=== PATIENT | male | born 1960 | race Caucasian/White ===

== ENCOUNTER 2024-09-04 11:07 | Emergency (ER) | payer BC, SELFPAY ==
--- OUTSIDE RECORDS SUMMARY | 2024-09-02 07:53 | XMS_ITS | Continuity of Care Document ---
Author Organization [facility] Address [address] [place] [address] Phone Care Team Providers Care Manager Payment Name Role Phone Tong Serrano MD Primary Care Provider [phone] Jayashree Boland APRN Attending Provider Care Teams Patient Care Team Team Status: Active Member Role Status Dates Tong Serrano MD Primary Care Provider Active Patient Care Team Team Status: Inactive Member Role Status Dates Tong Serrano MD Primary Care Provider Active S tart: September 02, 2024 End: September 02, 2024 Jayashree Boland APRN Attending Provider Active Start: September 02, 2024 End: September 02, 2024 Chief Complaint and Reason for Visit Chief Complaint Admit Date Cough, congestion, loose stool, headache September 02, 2024 11:16am Allergies, Adverse Reactions, Alerts Allergen Type Severity Reaction Last Updated Verified Status No Known Allergies Allergy Unknown September 02, 2024 11:21 am Yes Active Social History Smoking Status Status Start Date End Date Date of Observa tion Ex-smoker (finding) July 11:16am Observation Status Observation Response Date of Response Legal Sex Male (finding) Sex Assigned At Male 1960 Family History Relationship Condition Age at Onset Recorded Date/T tashia father Unknown Hepatic cirrhosis Unknown mother Unknown Problems Active Problems Medical Problem Onset Date Status Sciatic pain Unknown Active Gastrointestinal complaints Unknown Acti ve Sciatic leg pain Unknown Active Acute lower respiratory infection Unknown Active Medications Medication Status Dose Units Route Directions Qty Days St art Date Stop Date End Date Instructions Adherence Azithromyci n 250 mg tablet Discont inued 0 PO .COMPLEX 6 Novemb er 2023 1:00am Janua ry 2024 2:39p m For 250 mg dose pack: take 500 mg today (day 1), then 250 mg for 4 days (days 2-5) PO Pseudoephed rine-Dm-Gua ifenesin (Capmist Dm) 60-15-400 mg tablet Discont inued 1 TAB PO EVERY 4-6 HOURS as needed for cold symptoms October 07, 2023 12:00a m Novem 2023 11:27 am do not exceed 4 doses per 24 hrs [place] (No Known Home Meds) Active September 02, 2024 12:00a m Vital Signs Vital Reading Result Reference Range Collection Date/Time Height 72 [in_i] September 02, 2024 11:25am Weight 79.83 kg September 02, 2024 11:25am Body Temperature 98.8 [degF] 97.6-99.0 September 02, 2024 11:25am Heart Rate 78 /min 60-100 September 02, 2024 11:25am Respiratory rate 16 /min 12-September 02, 2024 11:25am Oxygen saturation by Pulse oximetry 98 % 95-100 September 02, 2024 11:2 5am BP Systolic 117 mm[Hg] 100-140 September 02, 2024 11:25am BP Diastolic 78 mm[Hg] 60-100 September 02, 2024 11:25am BMI (Body Mass Index) 23.8 kg/m2 August 092024 11:25am Advance Directives Advance Directive Response Recorded Date/ Time Advance Directives No October 2:35pm Insurance Providers Guarantor Herminia Hoffman Address [address] [place] [address] Contact Info. Home Phone: Payer Policy Id Subscriber's Name Subscriber Id Effectiv e Date Expiration Date Bhakti MARCH/NAEUDY [id number] Herminia Hoffman [id number] Encounters Encounter Location(s) Arrival/Admit Date Discharge/Depart Date Provider(s) Departed Physician/Prov ider Office Visit -[facility] September 02, 2024 11:16am September 02, 2024 11:52am John Kirby [employer]VE[employer]MENT BROKER
[2024-09-04 11:14] VITALS: BP 127/91; PULSE 92; TEMP 37; O2SAT 98; BMI 23.7
--- OUTSIDE RECORDS SUMMARY | 2024-09-04 11:18 | XMS_ITS | Clinical Summary ---
Author Organization [facility] Address [address] [place] [address] Care Team Providers Care Fly Worker Name Role Phone Tong Serrano MD Primary Care Provider [phone] Encounters Date Type Department Care Team Description 09/04/2024 [facility] [address] [facility] [address] [place] [address] Tong Serrano MD from Last 3 Months Social History Tobacco Use Types Packs/Day Years Used Date Smoking Tobacco: Never Assessed Sex and Gender Information Value Date Recorded Sex Assigned at Not on file Legal Sex Male 7:17 PM EDT Gender Identity Not on file Sexual Orientation Not on file Last Filed Vital Signs Vital Sign Reading Time Taken Comments Blood Pressure 118/82 09/26/2021 12:00 PM EDT Pulse - - Temperature - - Respiratory Rate - - Oxygen Saturation - - Inhaled Oxygen Concentration - - Weight 87.3 kg (192 lb 6.4 oz) 09/26/2021 12:00 PM EDT Height 185.4 cm (6' 1 ) 09/26/2021 12:00 PM EDT Body Mass Index 25.38 09/26/2021 12:00 PM EDT Plan of Treatment Health Maintenance Due Date Last Done Comments CT Colonography 1960 Colonoscopy 1960 Colorectal Cancer Screening 1960 FIT-DNA 1960 FIT 1960 FOBT 1960 Sigmoidoscopy 1960 Influenza Vaccine (#1) 2024 Insurance BCBS Care Teams Fly Worker Relationship Specialty Start Date End Date Tong Serrano MD [address] [address] PCP - General Family Medicine 06/16/22
--- OUTSIDE RECORDS SUMMARY | 2024-09-04 11:18 | XMS_ITS | Encounter Summary ---
Author Organization [facility] Address [address] [place] [address] Care Team Providers Care Wastewater Project Manager Name Role Phone Tong Serrano MD Primary Care Provider [phone] Encounter Details Date Type Department Care Team (Late st Contact Info) Description 02/23/2024 Abstract [facility] [address] [facility] [address] [place] [address] Tong Serrano MD [address] [facility] [address] [place] [address] Social History Tobacco Use Types Packs/Day Years Used Date Smoking Tobacco: Never Assessed Sex and Gender Information Value Date Recorded Sex Assigned at Not on file Legal Sex Male 7:17 PM EDT Gender Identity Not on file Sexual Orientation Not on file documented as of this encounter Plan of Treatment Not on file documented as of this encounter Visit Diagnoses Not on filedocumented in this encounter Care Teams Wastewater Project Manager Relationship Specialty Start Date End Date Tong Serrano MD [address] [facility] [address] [place] [address] PCP - General Family Medicine 06/16/22 documented as of this encounter
--- OUTSIDE RECORDS SUMMARY | 2024-09-04 11:18 | XMS_ITS | Encounter Summary ---
Author Organization [facility] Address [address] [place] [address] Care Team Providers Care Supervisor Blast Furnace Name Role Phone Tong Serrano MD Primary Care Provider [phone] Encounter Details Date Type Department Care Team (Late st Contact Info) Description 07/24/2022 Abstract [facility] [address] [facility] [address] [place] [address] Tong Serrano MD [address] [facility] [address] [place] [address] Social History Tobacco Use Types Packs/Day Years [...] on filedocumented in this encounter Care Teams Supervisor Blast Furnace Relationship Specialty Start Date End Date Tong Serrano MD [address] [facility] [address] [place] [address] PCP - General Family Medicine 06/16/22 documented as of this encounter
--- OUTSIDE RECORDS SUMMARY | 2024-09-04 11:18 | XMS_ITS | Encounter Summary ---
Author Organization [facility] Address [address] [place] [address] Care Team Providers Care Funeral Assistant Name Role Phone Tong Serrano MD Primary Care Provider [phone] Encounter Details Date Type Department Care Team (Late st Contact Info) Description 09/04/2024 Abstract [facility] [address] [facility] [address] [place] [address] Tong Serrano MD [address] [facility] [address] [place] [address] Social History Tobacco Use Types Packs/Day Years [...] on filedocumented in this encounter Care Teams Funeral Assistant Relationship Specialty Start Date End Date Tong Serrano MD [address] [facility] [address] [place] [address] PCP - General Family Medicine 06/16/22 documented as of this encounter
--- NOTE | 2024-09-04 11:35 | ED_ITS ---
HPI HPI - General Adult General Chief complaint: Upper Respiratory Infection Stated complaint: COUGH, RUNNY NOSE Time Seen by Provider: 09/04/24 11:14 Source: patient Mode of arrival: walk-in History of Present Illness HPI narrative: 64-year-old male presents to the emergency department for a cough. It is nonproductive and he has not had a known fever and has had no hemoptysis. He has had it for 4 days. 2 days ago he went to an urgent care center and they told him he has an upper respiratory infection. No prescriptions were given. He has not gotten better and so he came in here today. He quit smoking about 30 years ago Related Data Previous Rx's ?Medication ?Instructions ?Recorded azithromycin 250 mg tablet See Rx Instructions PO .COM PLEX #6 09/04/24 (Zithromax Z-Kameron) tabs benzonatate 100 mg capsule 100 mg PO TID PRN cough #20 caps 09/04/24 Allergies Allergy/AdvReac Type Severity Reaction Status Date / Time No Known Drug Allergies Allergy Verified 09/04/24 11:14 Review of Systems ROS Narrative A ten point review of systems is negative except as noted above. PFSH PFSH Social History Little interest or pleasure in doing things: not at all Feeling down, depressed, or hopeless: not at all Exam Narrative Exam Narrative: Nurses note and vital signs reviewed and patient is not hypoxic. General: The patient appears well and in no apparent distress. Patient is resting comfortably on cart. Skin: Warm, dry, no pallor noted. There is no rash noted. Head: Normocephalic, atraumatic Eye: Normal conjunctiva, no drainage Ears, Nose, Mouth, and Throat: oral mucosa is moist. Nares patent. Cardiovascular: Regular Rate and Rhythm Respiratory: Patient is in no distress, no accessory muscle use, lungs are clear to auscultation, no wheezing, rales or rhonchi Back: non-tender GI: Soft and nontender Musculoskeletal: The patient has no evidence of calf tenderness, no pitting edema, symmetrical pulses noted bilaterally Neurological: A&O, normal speech Psychiatric: Cooperative Constitutional Vital Signs, click to edit/add: Last Vital Signs Temp 98.6 F 09/04/24 11:14 Pulse 92 H 09/04/24 11:14 Resp 18 09/04/24 11:14 BP 127/91 09/04/24 11:14 Pulse Ox 98 09/04/24 11:14 O2 Del Method Room Air 09/04/24 11:14 Course Vital Signs Vital signs: Vital Signs Temperature 98.6 F 09/04/24 11:14 Pulse Rate 92 H 09/04/24 11:14 Respiratory Rate 18 09/04/24 11:14 Blood Pressure 127/91 09/04/24 11:14 Pulse Oximetry 98 09/04/24 11:14 Oxygen Delivery Method Room Air 09/04/24 11:14 Temperature 98.6 F 09/04/24 11:14 Pulse Rate 92 H 09/04/24 11:14 Respiratory Rate 18 09/04/24 11:14 Blood Pressure 127/91 09/04/24 11:14 Pulse Oximetry 98 09/04/24 11:14 Oxygen Delivery Method Room Air 09/04/24 11:14 Medical Decision Making MDM Narrative Medical decision making narrative: Chest x-ray and COVID are negative. He is prescribed Zithromax and Tessalon. Treatment diagnosis and follow-up were discussed with the patient. Differential Diagnosis Differential Diagnosis: Pneumonia, COVID, URI Lab Data Lab results reviewed: Yes I reviewed the patient's lab results Labs: Lab Results 09/04/24 Range/Units 11:40 SARS-CoV-2 Ag (CV2AG) Negative (NEGATIVE) Imaging Data Chest x-ray: Radiologist's impression: ITS Impressions Chest X-Ray 09/04/24 11:35 IMPRESSION: NO ACUTE FINDINGS Impression dictated by: Caridad Melendez M.D. 09/04/2024 11:59 AM Dictation Location: [place] [address] Electronically authenticated by: [id number] Y Date: 09/04/2024 11:59 Discharge Plan Discharge Chief Complaint: Upper Respiratory Infection Clinical Impression: Upper respiratory infection Patient Disposition: Home, Self-Care Time of Disposition Decision: 12:10 Condition: Good Mode of Transportation: Private Vehicle Prescriptions / Home Meds: New azithromycin [Zithromax Z-Kameron] 250 mg tablet See Rx Instructions .ROUTE .COMPLEX Qty: 6 0RF Rx Instructions: For 250 mg dose pack: take 500 mg today (day 1), then 250 mg for 4 days (days 2-5) benzonatate 100 mg capsule 100 mg PO TID PRN (Reason: cough) Qty: 20 0RF Print Language: Tajik Instructions: Upper Respiratory Infection (ED) Referrals: KEKE RAMIREZ [Primary Care Provider, Family Practice] - 1 week
--- NOTE | 2024-09-04 11:35 | XR_ITS ---
The [address] [address] Patient Name: DARCI HERRERA MRN: [id number] date: 1960 Sex: M Assigned Patient Location: ER Current Patient Location: ER Accession/Order Number: [id number] Exam Date: 09/04/2024 11:56 Report Date: 09/04/2024 11:59 At the request of: ORION ZHENG MD Procedure: XR chest 1V PORTABLE AP ERECT CHEST 0141 hours CLINICAL HISTORY: cough for the past 4 days. Prior tobacco use. COMPARISON: CT 06/18/2021 The heart is within normal limits. There is no vascular congestion. There are mild obstructive changes. No focal consolidation is seen. There is no effusion or pneumothorax. The osseous structures are intact. XR/XR chest 1V IMPRESSION: NO ACUTE FINDINGS Impression dictated by: Caridad Melendez M.D. 09/04/2024 11:59 AM Dictation Location: [place] [address] Electronically authenticated by: [id number] Y Date: 09/04/2024 11:59
[2024-09-04 12:00] LABS: SARS-CoV-2 Ag NEGATIVE (NEGATIVE)
== END 2024-09-04 12:16 | disposition home or self-care (01) ==
PROVIDERS: Emergency Provider Emergency Medicine; PCP Family Medicine
DX: J06.9 Acute upper respiratory infection, unspecified (principal); Z87.891 Personal history of nicotine dependence
CPT/HCPCS: 71045; 87811; 99284